=== PATIENT | male | born 1955 | race Caucasian/White ===

== ENCOUNTER 2019-10-11 17:21 | Inpatient (IN) | payer BC, MEDICAID ==
[~2019-10-11] VITALS: Ht 170.2 cm; Wt 59.3 kg
--- NOTE | 2019-10-11 17:28 | NUR ---
64 Y/O MALE BIB AMBULANCE WITH C/O ETOH. PER REPORT FAMILY IS CONCERNED D/T HE HASN'T BEEN EATING FOR THE LAST TWO WEEKS. ALSO FAMILY THINKS HE IS MALNOURISHED AND WANTS HIM TO BE CHECKED. FAMILY ALSO SAYS HE HAS TROUBLE SITTING AND STANDING AND HAS HAD MORE FALLS LATELY. PIV ESTABLISHED INFORMATION CLERK CASHIER, 250 mL NS ADMINISTERED INFORMATION CLERK CASHIER. PT HAS BRUISING ON RIGHT ARM AND SKIN TEAR. ALSO HAS HEALING LAC ABOVE RIGHT EYE. PT STATES IT IS FROM FALLING BECAUSE DRINKING. PT STATES "I WAS SOBER FOR 22 YEARS AND I HAVE RELAPSED BAD THIS LAST YEAR. THESE BRUISING ARE FROM FALLING FROM BEING DRUNK." PT DENIES N/V/D, TRAUMA, SYNCOPE, CP, SOB. PT DOESN'T BELIEVE HE HAS SEIZURES D/T DETOX. PT PLACED ON CONT PULSE OX,NIBP, WHEEL LOADER OPERATOR. SHIRA. SISTER NOW BEDSIDE. Addendum: 10/11/19 at 1733 by MASOOD TASK RN:
--- NOTE | 2019-10-11 17:33 | NUR ---
TASK RN: BEDSIDE REPORT TO AMIE NEVILLE.
--- NOTE | 2019-10-11 17:35 | NUR ---
REPORT FROM ROXI HOLLOWAY. PER SISTER PT HAS SEIZURE HX.
--- NOTE | 2019-10-11 17:35 | NUR ---
PIPER SISTER: [phone]
--- NOTE | 2019-10-11 17:54 | NUR ---
PA IN ROOM FOR EVAL.
[2019-10-11] MEDS ORDERED: ONDANSETRON 2MG/ML, 2ML IVPush ONE (18:30)
[2019-10-11] MEDS ORDERED: THIAMINE 100MG TABLET PO ONE (18:30)
[2019-10-11] MEDS ORDERED: SODIUM CHLORIDE 0.9% 1,000ML IVBOLUS ONE (18:30)
[2019-10-11] MEDS ORDERED: SODIUM CHLORIDE FLUSH 10ML SYR IVF ONE (18:30)
[2019-10-11] MEDS ORDERED: LORazepam 2 MG/ML, 1ML IVPush ONE (18:30)
[2019-10-11 18:34] LABS: ALANINE AMINOTRANSFERASE 40 U/L (12-78); ALBUMIN 2.8 g/dL (3.4-5.0); ANION GAP 15 mmol/L (5-15); CALCIUM 7.5 mg/dL (8.5-10.1); CHLORIDE 94 mmol/L (98-107); CREATININE 0.95 mg/dL (0.7-1.3)
[2019-10-11 18:37] LABS: ALKALINE PHOSPHATASE 102 U/L (45-117); TOTAL PROTEIN 5.9 g/dL (6.4-8.2)
[2019-10-11 18:38] LABS: BASOPHILS # (AUTO) 0.01 x10^3/uL (0-0.1); BASOPHILS % (AUTO) 0 % (0-1); EOSINOPHILS # (AUTO) 0.02 x10^3/uL (0-0.4); EOSINOPHILS % (AUTO) 0 % (1-7); LYMPHOCYTES # (AUTO) 1.43 x10^3/uL (1-3.4); LYMPHOCYTES % (AUTO) 19 % (22-44); MD NO; MEAN CORPUSCULAR HEMOGLOBIN 30.5 pg (27.5-34.5); MEAN CORPUSCULAR HGB CONC 33.3 g/dL (33.2-36.2); MEAN CORPUSCULAR VOLUME 91.5 fL (81-97); MEAN PLATELET VOLUME 7.6 fL (7.4-10.4); MONOCYTES # (AUTO) 0.54 x10^3/uL (0.2-0.8); MONOCYTES % (AUTO) 7 % (2-9); NEUTROPHILS # (AUTO) 5.59 x10^3/uL (1.8-6.8); NEUTROPHILS % (AUTO) 74 % (42-75); PLATELET COUNT 115 x10^3/uL (130-400); RED BLOOD COUNT 3.77 x10^6/uL (4.38-5.82); RED CELL DISTRIBUTION WIDTH 20.2 % (9.4-14.8)
[2019-10-11] MEDS ORDERED: THIAMINE 100MG TABLET ONE (18:42)
[2019-10-11] MEDS ORDERED: LORazepam 2 MG/ML, 1ML ONE (18:43)
[2019-10-11] MEDS ORDERED: ONDANSETRON 2MG/ML, 2ML ONE (18:43)
--- NOTE | 2019-10-11 18:53 | NUR ---
MEDS PER MAR EKG IN PROGRESS VSS.
--- NOTE | 2019-10-11 19:32 | NUR ---
SLEEPING, VSS, RECHECK.
[2019-10-11] MEDS ORDERED: THIAMINE 100 MG in SODIUM CHLORIDE 0.9% 50 ML IVPB ONE (20:00)
[2019-10-11] MEDS ORDERED: NICOTINE 21 MG/24 HR PATCH.TD24 ONE (20:25)
[2019-10-11] MEDS ORDERED: HEPARIN 5,000 UNITS/ML, 1ML ONE (20:25)
[2019-10-11] MEDS ORDERED: ONDANSETRON ODT 4 MG PO PRN (20:30)
[2019-10-11] MEDS ORDERED: POLYETHYLENE GLYCOL 17 GM PACKET PO PRN (20:30)
[2019-10-11] MEDS ORDERED: BISACODYL 10 MG SUPP PR PRN (20:30)
[2019-10-11] MEDS: HEPARIN 5,000 UNITS/ML, 1ML SQ SCH (20:33)
[2019-10-11] MEDS: NICOTINE 21 MG/24 HR PATCH.TD24 TD SCH (20:33)
--- NOTE | 2019-10-11 20:40 | NUR ---
MEDS PER MAR, GIVEN PB AND J. ATTEMPT TO UPDATE MED REC, UNABLE TO REMEMBER MEDS. REPORT TO CARMINA HOLLOWAY 4TH FLOOR. PT IS CALM, ORIENTED TO SELF AND PLACE, D/O TO TIME, NO SHAKING NOTED. REORIENTED.
[2019-10-11 20:59] VITALS: BP 146/78
[2019-10-11] MEDS: LORazepam 2 MG/ML, 1ML IVPush PRN (21:25)
[2019-10-11] MEDS: SODIUM CHLORIDE 0.9% 1,000 ML IV SCH (22:23)
[2019-10-12 01:43] VITALS: BP 135/79
[2019-10-12] MEDS: HEPARIN 5,000 UNITS/ML, 1ML SQ SCH ×3 (04:22→20:28)
[2019-10-12] MEDS: THIAMINE 200 MG in SODIUM CHLORIDE 0.9% 50 ML IV SCH ×3 (04:22→20:28)
[2019-10-12] MEDS: LORazepam 2 MG/ML, 1ML IVPush PRN (06:03)
[2019-10-12 06:40] LABS: ANION GAP 8 mmol/L (5-15); CALCIUM 7.7 mg/dL (8.5-10.1); CHLORIDE 100 mmol/L (98-107)
[2019-10-12 06:42] LABS: CREATININE 0.83 mg/dL (0.7-1.3)
[2019-10-12 07:31] LABS: BASOPHILS % (AUTO) 1 % (0-1); EOSINOPHILS # (AUTO) 0.01 x10^3/uL (0-0.4); EOSINOPHILS % (AUTO) 0 % (1-7); LYMPHOCYTES # (AUTO) 1.85 x10^3/uL (1-3.4); LYMPHOCYTES % (AUTO) 25 % (22-44); MD SCAN; MEAN CORPUSCULAR HEMOGLOBIN 30.1 pg (27.5-34.5); MEAN CORPUSCULAR HGB CONC 32.4 g/dL (33.2-36.2); MEAN CORPUSCULAR VOLUME 92.9 fL (81-97); MEAN PLATELET VOLUME 7.5 fL (7.4-10.4); MONOCYTES # (AUTO) 0.59 x10^3/uL (0.2-0.8); MONOCYTES % (AUTO) 8 % (2-9); NEUTROPHILS # (AUTO) 4.81 x10^3/uL (1.8-6.8); NEUTROPHILS % (AUTO) 65 % (42-75); PLATELET COUNT 98 x10^3/uL (130-400); RED BLOOD COUNT 4.18 x10^6/uL (4.38-5.82); RED CELL DISTRIBUTION WIDTH 20.1 % (9.4-14.8)
[2019-10-12] MEDS: SENNA/DOCUSATE TABLET PO SCH (08:20)
[2019-10-12] MEDS: CHLORDIAZEPOXIDE 25 MG CAPSULE PO PRN ×2 (10:00→16:59)
[2019-10-12] MEDS: SODIUM CHLORIDE 0.9% 1,000 ML IV SCH ×2 (10:00→17:00)
[2019-10-12 10:22] VITALS: BP 136/78
[2019-10-12] MEDS ORDERED: FOLI-17 PO (12:20)
[2019-10-12] MEDS ORDERED: ATOR40TA78 PO (12:20)
[2019-10-12] MEDS ORDERED: THIA100T27 PO (12:20)
[2019-10-12] MEDS ORDERED: METO-93 PO (12:20)
[2019-10-12] MEDS ORDERED: LISI-420 PO (12:20)
[2019-10-12 14:47] VITALS: BP 126/73
[2019-10-12 18:46] VITALS: BP 148/84
[2019-10-12] MEDS: NICOTINE 21 MG/24 HR PATCH.TD24 TD SCH (20:28)
[2019-10-13 00:21] VITALS: BP 150/81
[2019-10-13] MEDS: CHLORDIAZEPOXIDE 25 MG CAPSULE PO PRN ×3 (01:48→20:17)
[2019-10-13] MEDS: SODIUM CHLORIDE 0.9% 1,000 ML IV SCH ×2 (04:23→20:06)
[2019-10-13] MEDS: THIAMINE 200 MG in SODIUM CHLORIDE 0.9% 50 ML IV SCH ×3 (04:28→20:15)
[2019-10-13] MEDS: HEPARIN 5,000 UNITS/ML, 1ML SQ SCH ×3 (04:28→20:06)
[2019-10-13 05:09] LABS: ANION GAP 7 mmol/L (5-15); CALCIUM 7.4 mg/dL (8.5-10.1); CHLORIDE 101 mmol/L (98-107)
[2019-10-13 05:11] LABS: CREATININE 0.79 mg/dL (0.7-1.3)
[2019-10-13 05:20] LABS: MEAN CORPUSCULAR HEMOGLOBIN 30.3 pg (27.5-34.5); MEAN CORPUSCULAR HGB CONC 32.8 g/dL (33.2-36.2); MEAN CORPUSCULAR VOLUME 92.4 fL (81-97); PLATELET COUNT 85 x10^3/uL (130-400); RED BLOOD COUNT 3.68 x10^6/uL (4.38-5.82); RED CELL DISTRIBUTION WIDTH 20.4 % (9.4-14.8)
[2019-10-13 06:08] LABS: BASOPHILS # (AUTO) 0.04 x10^3/uL (0-0.1); BASOPHILS % (AUTO) 1 % (0-1); EOSINOPHILS # (AUTO) 0.07 x10^3/uL (0-0.4); EOSINOPHILS % (AUTO) 1 % (1-7); LYMPHOCYTES # (AUTO) 1.22 x10^3/uL (1-3.4); LYMPHOCYTES % (AUTO) 20 % (22-44); MD SCAN; MONOCYTES # (AUTO) 0.58 x10^3/uL (0.2-0.8); MONOCYTES % (AUTO) 10 % (2-9); NEUTROPHILS # (AUTO) 4.16 x10^3/uL (1.8-6.8); NEUTROPHILS % (AUTO) 69 % (42-75)
[2019-10-13 06:36] VITALS: BP 155/84
[2019-10-13] MEDS ORDERED: MAGNESIUM SULFATE PMX 2GM/50ML 50 ML IV ONE (08:00)
[2019-10-13] MEDS ORDERED: POTASSIUM PHOSPHATE 44 MEQ in SODIUM CHLORIDE 0.9% 500 ML IV ONE (08:00)
[2019-10-13] MEDS: SENNA/DOCUSATE TABLET PO SCH (09:08)
[2019-10-13] MEDS: MULTIVITAMIN 1 TABLET PO SCH (09:08)
[2019-10-13] MEDS: MAGNESIUM CHLORIDE 64 MG TABLET.DR PO SCH ×2 (09:08→20:15)
[2019-10-13 13:21] VITALS: BP 152/89
[2019-10-13] MEDS: LORazepam 2 MG/ML, 1ML IVPush PRN ×2 (13:27→21:51)
[2019-10-13] MEDS: NICOTINE 21 MG/24 HR PATCH.TD24 TD SCH (20:06)
[2019-10-13 20:21] VITALS: BP 148/82
[2019-10-13] MEDS ORDERED: HALOPERIDOL 5 MG/ML ONE (22:48)
[2019-10-13] MEDS ORDERED: HALOPERIDOL 5 MG/ML IM ONE (23:00)
[2019-10-14] MEDS: LORazepam 2 MG/ML, 1ML IVPush PRN ×3 (00:32→23:59)
[2019-10-14 02:00] VITALS: BP 139/78
[2019-10-14] MEDS: HEPARIN 5,000 UNITS/ML, 1ML SQ SCH ×3 (04:11→21:13)
[2019-10-14] MEDS: THIAMINE 200 MG in SODIUM CHLORIDE 0.9% 50 ML IV SCH ×2 (04:11→12:31)
[2019-10-14 06:31] VITALS: BP 127/78
[2019-10-14 06:33] LABS: ANION GAP 5 mmol/L (5-15); CALCIUM 7.7 mg/dL (8.5-10.1); CHLORIDE 101 mmol/L (98-107); CREATININE 0.69 mg/dL (0.7-1.3)
[2019-10-14] MEDS: MULTIVITAMIN 1 TABLET PO SCH (08:05)
[2019-10-14] MEDS: SENNA/DOCUSATE TABLET PO SCH (08:05)
[2019-10-14] MEDS: MAGNESIUM CHLORIDE 64 MG TABLET.DR PO SCH ×2 (08:05→21:13)
[2019-10-14] MEDS: SODIUM CHLORIDE 0.9% 1,000 ML IV SCH (08:05)
[2019-10-14 12:05] VITALS: BP 151/86
[2019-10-14 18:34] VITALS: BP 145/82
[2019-10-14] MEDS: CHLORDIAZEPOXIDE 25 MG CAPSULE PO PRN (21:13)
[2019-10-14] MEDS: NICOTINE 21 MG/24 HR PATCH.TD24 TD SCH (21:14)
[2019-10-14] MEDS ORDERED: ZIPRASIDONE 20 MG INJ IM ONE ×2 (23:19→23:30)
[2019-10-15 01:57] VITALS: BP 139/76
[2019-10-15] MEDS: LORazepam 2 MG/ML, 1ML IVPush PRN (03:52)
[2019-10-15] MEDS: HEPARIN 5,000 UNITS/ML, 1ML SQ SCH ×3 (03:52→21:29)
[2019-10-15 06:28] VITALS: BP 139/90
[2019-10-15] MEDS: SENNA/DOCUSATE TABLET PO SCH (09:07)
[2019-10-15] MEDS: MAGNESIUM CHLORIDE 64 MG TABLET.DR PO SCH ×2 (09:07→21:29)
[2019-10-15] MEDS: MULTIVITAMIN 1 TABLET PO SCH ×2 (09:07→09:12)
[2019-10-15] MEDS: FOLIC ACID 1 MG TABLET PO SCH (09:08)
[2019-10-15] MEDS: THIAMINE 100MG TABLET PO SCH (09:08)
[2019-10-15 12:10] VITALS: BP 126/76
[2019-10-15] MEDS ORDERED: LISI-420 PO (15:46)
[2019-10-15] MEDS ORDERED: MULT-449 PO (15:47)
[2019-10-15 18:44] VITALS: BP 122/73
[2019-10-15] MEDS ORDERED: ATORVASTATIN 40 MG TABLET PO SCH (21:00)
[2019-10-15] MEDS: NICOTINE 21 MG/24 HR PATCH.TD24 TD SCH (21:28)
[2019-10-16 02:42] VITALS: BP 127/78
[2019-10-16] MEDS: HEPARIN 5,000 UNITS/ML, 1ML SQ SCH ×2 (04:23→12:52)
[2019-10-16 06:53] LABS: ALBUMIN 2.8 g/dL (3.4-5.0); CHLORIDE 102 mmol/L (98-107)
[2019-10-16 06:57] LABS: ALANINE AMINOTRANSFERASE 32 U/L (12-78); ALKALINE PHOSPHATASE 86 U/L (45-117); ANION GAP 4 mmol/L (5-15); BILIRUBIN,TOTAL 0.4 mg/dL (0.2-1.0); CALCIUM 8.6 mg/dL (8.5-10.1); CREATININE 0.91 mg/dL (0.7-1.3); TOTAL PROTEIN 6.6 g/dL (6.4-8.2)
[2019-10-16 08:05] VITALS: BP 153/89
[2019-10-16] MEDS: THIAMINE 100MG TABLET PO SCH (08:37)
[2019-10-16] MEDS: MAGNESIUM CHLORIDE 64 MG TABLET.DR PO SCH (08:37)
[2019-10-16] MEDS: MULTIVITAMIN 1 TABLET PO SCH ×2 (08:37→08:38)
[2019-10-16] MEDS: SENNA/DOCUSATE TABLET PO SCH (08:38)
[2019-10-16] MEDS: FOLIC ACID 1 MG TABLET PO SCH (08:38)
[2019-10-16] MEDS ORDERED: METOPROLOL SUCCINATE 50 MG TAB.ER.24H PO SCH (09:00)
[2019-10-16] MEDS ORDERED: LISINOPRIL 10 MG TABLET PO SCH (09:00)
[2019-10-16 09:21] LABS: BASOPHILS # (AUTO) 0.09 x10^3/uL (0-0.1); BASOPHILS % (AUTO) 2 % (0-1); EOSINOPHILS # (AUTO) 0.06 x10^3/uL (0-0.4); EOSINOPHILS % (AUTO) 1 % (1-7); LYMPHOCYTES # (AUTO) 1.26 x10^3/uL (1-3.4); LYMPHOCYTES % (AUTO) 21 % (22-44); MD SCAN; MEAN CORPUSCULAR HGB CONC 33.2 g/dL (33.2-36.2); MEAN CORPUSCULAR VOLUME 93.3 fL (81-97); MEAN PLATELET VOLUME 7.5 fL (7.4-10.4); MONOCYTES # (AUTO) 0.92 x10^3/uL (0.2-0.8); MONOCYTES % (AUTO) 15 % (2-9); NEUTROPHILS # (AUTO) 3.74 x10^3/uL (1.8-6.8); NEUTROPHILS % (AUTO) 62 % (42-75); PLATELET COUNT 150 x10^3/uL (130-400); RED BLOOD COUNT 4.03 x10^6/uL (4.38-5.82)
== END 2019-10-16 16:47 | DRG 57 ==
LOC: ED 17:30 → EDIP 20:28 → 4WST 20:52 → 4EST 10-12 01:11
PROVIDERS: ADMIT Internal Medicine; ATTEND Hospitalist
PROC: HZ2ZZZZ Detoxification Services for Substance Abuse Treatment (ICD-10-PCS; principal; 2019-10-12)
DX: G31.2 Degeneration of nervous system due to alcohol (principal); E51.2 Wernicke's encephalopathy; F10.239 Alcohol dependence with withdrawal, unspecified; E87.1 Hypo-osmolality and hyponatremia; F17.210 Nicotine dependence, cigarettes, uncomplicated; I10 Essential (primary) hypertension; D64.9 Anemia, unspecified; F10.20 Alcohol dependence, uncomplicated; Y90.0 Blood alcohol level of less than 20 mg/100 ml
CPT/HCPCS: 36415; 70450; 80048; 80053; 80307; 82306; 82607; 82728; 83540; 83550; 83735; 84100; 84425; 84443; 84466; 85025; 93005; 96374; 96375; 99285; G0378; J1644; J2405; J3411; J3486; J1630; J2060; J3475; J7030; J7040